=== PATIENT | female | born 1980 | race Two or more races ===

== ENCOUNTER 2025-01-06 13:11 | Inpatient (IN) | payer MEDICAID, SELFPAY ==
[2025-01-06] VITALS (8 sets, daily range): BP systolic 98–134; BP diastolic 56–78; PULSE 75–140; RESP 17–100; TEMP 36.2–39.4; O2SAT 97–100
--- NOTE | 2025-01-06 13:59 | PD.EDADULT ---
ED General RME/HPI General Chief complaint: Chest Pain Stated complaint: LEFT CHEST, ABD PAIN W/ VOMITING; HAND/FACE TINGLE Time Seen by Provider: 01/06/25 13:51 Arrival date/time: 01/06/25 13:11 CC: Left flank pain with radiation to the left groin onset 3 days ago progressive increase in severity of nausea and vomit involved denies any diarrhea noted to be febrile. Patient been taking ibuprofen 800 mg at home without any significant relief. Patient denies chest pain shortness of breath or difficulty breathing however patient is noted during this assessment to be mildly tachypneic. Patient takes metformin as her only medication 500 mg twice a day. Related Data Home Medications ?Medication ?Instructions ?Recorded ?Confirmed vitamins-iron fumarate 27 1 tab PO QDAY 02/15/19 10/24/20 mg iron-folic acid 0.8 mg tablet ( Vitamin) metformin 500 mg tablet 500 mg PO BID 10/24/20 10/24/20 Allergies Allergy/AdvReac Type Severity Reaction Status Date / Time No Known Drug Allergies Allergy Verified 01/06/25 13:16 Review of Systems Review of Systems Narrative Review of Systems: GEN: No fever, no chills, no weight loss EYES: No discharge, no visual changes, no pain HEENT: No ear pain, no congestion, no sore throat PULM: No shortness of breath, no cough, no congestion CV: No chest pain, no dyspnea on exertion, no palpitations GI: No nausea, no vomiting, no diarrhea, no pain, no constipation, +flank pain : No frequency, no urgency, no dysuria MUSC/SKEL: No joint pain, no back pain SKIN: No rash PSYCH: No hallucinations, no depression HEME/LYMPH: No easy bleeding or bruising tendencies NEURO: No weakness, no headache Past Medical History Past Medical History NEUROLOGIC: Negative Neurological Disorders or Seizures CARDIAC: Negative Cardiac Disorders, Congestive Heart Failure or Hypertension RESPIRATORY: Negative Chronic Obstructive Pulmonary Disease (COPD) GASTROINTESTINAL: Negative Gastrointestinal Disorders GENITOURINARY: Negative Genitourinary Disorders or Renal Disease REPRODUCTIVE: Positive Previous Pregnancies (x3); Negative Pelvic Inflammatory Disease MUSCULOSKELETAL: Negative Musculoskeletal Disorders or Arthritis ENDOCRINE: Positive Endocrine Disorders; Negative Diabetes Mellitus Type 1 or Diabetes Mellitus Type 2 HEMATOLOGIC: Negative Blood Disorders or Anemia PSYCHO/SOCIAL: Negative Depression or Anxiety OTHER HISTORY: Positive Hospitalization (childbirth); Negative Autoimmune Disease, Blood Transfusions, Blood Transfusion Reaction, Anesthesia Reactions or Cancer Family History FAMILY HISTORY: Positive Family Cancer (SISTER UTERINE CANCER, MOTHER UTERINE); Negative Family Psychiatric Problems, Family Respiratory Disorders, Family Cardiac Disorders, Family Gastrointestinal Problems, Family Surgery or Family Anesthesia Reaction Surgical History SURGICAL: Positive Section (X1-TWINS); Negative Cardiac Surgery, Endocrine Surgery, Ear Surgery, Abdominal Surgery, Nephrectomy, Joint Replacement, Neurologic Surgery or Mastectomy Social History SMOKING STATUS: Never smoker SECOND HAND EXPOSURE: No ED Exam Narrative Physical exam: [General: Obese, in moderate discomfort but not in any acute distress. Head normocephalic HEENT: Eyes: Pupils are PERRLA EOMs are intact mouth pink dry membranes uvula is midline swallow symmetrical phonation is normal. Nose no rhinorrhea although the subsystems of HEENT are within acceptable limits Neck is supple nontender no JVD no edema Chest equal chest rise nontender to palpation Respiratory: Tachypneic, clear to auscultation no wheezes crackles or rubs CV: Rate rhythm is regular, tachycardic, no murmurs rubs or clicks Abdomen is distended secondary to body habitus soft nontender no masses positive bowel sounds all 4 quadrants GI: Rectum: Good rectal tone, no fissures no hemorrhoids, vault is empty fecal matter from the vault wall is guaiac positive Back: Left CVA tenderness, no right CVA tenderness, no spinous process tenderness from cervical spine thoracic and lumbar spine Skin: Intact no petechiae rash induration ulceration or crepitus Extremities: Moving all extremity against resistance cap refill less than 2 seconds neurosensory intact Neuro: Awake alert oriented x3 Glascow coma 15 no focal deficits] Course Course Course Narrative: Noticed that the patient has a anemia at 9.1 which is a significant drop of 3 g although its over the last [address] shows there is no diverticulitis or diverticulosis, patient does not take chronic ibuprofen or Tylenol. The patient denies having heavy menses. Has never been informed that she is anemic. There is no other reason for her to be anemic other than a GI bleed. Patient's case discussed with Dr. Hawkins who agrees to consult on this patient will admit the patient for GI bleed anemia as well as urolithiasis and flank pain. Patient's case discussed with the resident for Dr. Blackman, who agrees to accept the patient for admission for urolithiasis hydroureter GI bleed and anemia Quality Measures none Orders Category Date Time Status Admit to Inpatient Status Routine Admission 01/06/25 17:12 Active Patient Condition Routine Admission 01/06/25 17:12 Ordered Bedside COVID-19 Antigen Test NOW Care 01/06/25 13:35 Active Bedside Influenza A&B Antigen Test NOW Care 01/06/25 13:35 Completed Automatic Splicing Machine Operator STAT Care 01/06/25 13:56 Active Continuous Pulse Oximetry STAT Care 01/06/25 13:56 Completed EKG (ED ONLY) *Do not use* NOW Care 01/06/25 13:16 Completed In and Out Catheter X1PRN Care 01/06/25 13:56 Active Insert IV NOW Care 01/06/25 13:35 Active NPO STAT Care 01/06/25 13:56 Active NPO after Midnight ONCE Care 01/06/25 16:50 Active Notify provider NEEDED Care 01/06/25 17:12 Active Sequential Compression Device QSHIFT Care 01/06/25 17:11 Active Strict Intake and Output Routine Care 01/06/25 13:56 Ordered Diet Clear Liquid Diet 01/07/25 Breakfast Active Diet NPO after Midnight Diet 01/07/25 00:[address] abdomen pelvis wo con Stat Exams 01/06/25 15:18 Completed EKG (ED Only) Stat Exams 01/06/25 13:16 Ordered B-Type Natriuretic Peptide Stat Lab 01/06/25 13:47 Completed Blood Culture (Lab) Stat Lab 01/06/25 14:07 Received CBC AM DRAW Lab 01/07/25 05:00 Ordered CBC AM DRAW Lab 01/08/25 05:00 Ordered CBC AM DRAW Lab 01/09/25 05:00 Ordered CBC AM DRAW Lab 01/10/25 05:00 Ordered CBC AM DRAW Lab 01/11/25 05:00 Ordered CBC Stat Lab 01/06/25 13:47 Completed Comprehensive Metabolic Panel AM DRAW Lab 01/07/25 05:00 Ordered Comprehensive Metabolic Panel AM DRAW Lab 01/08/25 05:00 Ordered Comprehensive Metabolic Panel AM DRAW Lab 01/09/25 05:00 Ordered Comprehensive Metabolic Panel AM DRAW Lab 01/10/25 05:00 Ordered Comprehensive Metabolic Panel AM DRAW Lab 01/11/25 05:00 Ordered Comprehensive Metabolic Panel Stat Lab 01/06/25 13:47 Completed Glycohemoglobin w (eAG) AM DRAW Lab 01/07/25 05:00 Ordered HCG,Qualitative Serum Stat Lab 01/06/25 13:47 Completed LDH (Lactate Dehydrogenase) Stat Lab 01/06/25 13:47 Completed Lactate (Lactic Acid) Stat Lab 01/06/25 13:47 Completed Lipase Stat Lab 01/06/25 13:47 Completed Magnesium AM DRAW Lab 01/07/25 05:00 Ordered Magnesium AM DRAW Lab 01/08/25 05:00 Ordered Magnesium AM DRAW Lab 01/09/25 05:00 Ordered Magnesium AM DRAW Lab 01/10/25 05:00 Ordered Magnesium AM DRAW Lab 01/11/25 05:00 Ordered Magnesium Stat Lab 01/06/25 13:47 Completed Partial Thromboplastin Time Stat Lab 01/06/25 13:47 Completed Phosphorous AM DRAW Lab 01/07/25 05:00 Ordered Phosphorous AM DRAW Lab 01/08/25 05:00 Ordered Phosphorous AM DRAW Lab 01/09/25 05:00 Ordered Phosphorous AM DRAW Lab 01/10/25 05:00 Ordered Phosphorous AM DRAW Lab 01/11/25 05:00 Ordered Phosphorous Stat Lab 01/06/25 13:47 Completed Procalcitonin Stat Lab 01/06/25 13:47 Completed Prothrombin Time with INR Stat Lab 01/06/25 13:47 Completed Troponin I Stat Lab 01/06/25 13:47 Completed Type and Screen Stat Lab 01/06/25 17:14 Completed Urinalysis Stat Lab 01/06/25 15:07 Completed Urine Culture Stat Lab 01/06/25 15:07 Received Acetaminophen Ivpb [Ofirmev Inj] Med 01/06/25 13:55 Discontinued 1,000 mg in 100 ml IV X1 Acetaminophen Tab [Tylenol ES Tab] Med 01/06/25 13:35 Discontinued 1,000 mg PO X1 ONE Acetaminophen Tab [Tylenol Tab] Med 01/06/25 17:11 Active 650 mg PO Q6H PRN Dextrose 50% Syr [D50w Syringe Abboject] Med 01/06/25 17:11 Active 25 ml IV Q15MIN PRN Dextrose 50% Syr [D50w Syringe Abboject] Med 01/06/25 17:11 Active 50 ml IV Q15MIN PRN Glucagon Inj Med 01/06/25 17:11 Active 1 mg IM Q15MIN PRN HYDROcodone*/APAP 5/325 [[place] 5/325] Med 01/06/25 17:11 Active 1 tab PO Q4HR PRN INSULIN LISPRO (AdmeLOG) [HumaLOG] Med 01/07/25 07:30 Active See Protocol SC AC KCL 10% Liq UDC 15 ML Med 01/06/25 15:18 Discontinued 40 meq GT X1 ONE Morphine Inj Med 01/06/25 17:11 Active 1 mg IVP Q2H PRN Ondansetron Inj [Zofran Inj] Med 01/06/25 17:11 Active 4 mg IVP Q6H PRN Pantoprazole Inj [Protonix Inj] Med 01/07/25 09:00 Discontinued 40 mg IVP QDAY Pantoprazole Inj [Protonix Inj] Med 01/06/25 16:45 Discontinued 40 mg IVP X1 ONE Pantoprazole/Ns 80Mg IV Premix [Protonix/NS 80mg IV Med 01/06/25 16:45 Active Premix] 80 mg in 100 ml IV Q10H Ringers Lactated 1000 ml [Lactated Ringers] 1,000 ml Med 01/06/25 13:59 Discontinued IV 999 mls/hr Ringers Lactated 1000 ml [Lactated Ringers] 1,000 ml Med 01/06/25 14:32 Discontinued IV 999 mls/hr Sodium Chloride 0.9% 1000 ml [Ns] 1,000 ml Med 01/06/25 16:50 Active IV 125 mls/hr Sodium Chloride 0.9% 1000 ml [Ns] 1,000 ml Med 01/06/25 13:35 Discontinued IV 999 mls/hr cefTRIAXone/D5w 1gm IV premix [Rocephin/D5w 1gm IV Med 01/06/25 14:32 Discontinued premix] 1 gm in 50 ml IV X1 Code Status Routine Oth 01/06/25 17:11 Ordered Oxygen Delivery NOW RT 01/06/25 13:56 Active Oxygen Delivery PRN RT 01/06/25 17:11 Active Vital Signs Vital signs: Vital Signs Temperature 103.0 F H 01/06/25 13:24 Pulse Rate 140 H 01/06/25 13:24 Respiratory Rate 24 H 01/06/25 13:24 Blood Pressure 134/78 H 01/06/25 13:24 Pulse Oximetry (%) 98 01/06/25 13:24 Oxygen Delivery Method Room Air 01/06/25 13:24 Discharge Plan Plan Patient Disposition: Admit Acute Care w/in Hospital Patient condition on transfer: Stable Problem List Clinical Impression: Anemia, GI bleed, Hydronephrosis, Urolithiasis 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 No thrombocytopenia. Note review of the medical record show that hemoglobins in the past have been highly variable. Coags within acceptable limits CMP shows sodium 134 potassium 3.1 CO2 of 18.9 glucose of 170 Lactic of 3.0 Phos of 1.3 Mag 1.5 No transaminitis or T. bili elevation Troponin is negative BNP is 111 Procalcitonin 1.42. Medication Administration(s) Medication Administration History Acetaminophen (Acetaminophen 325 Mg Tablet) 650 mg PO Q6H PRN PRN Reason: pain and Fever >100.4 Stop: 02/05/25 17:10 Last Admin: 01/06/25 21:57 Dose: 650 mg Documented By: Comments: Per Pt request Hydrocodone Bitart/Acetaminophen (Hydrocodone/Apap 5/325 Tablet) 1 tab PO Q4HR PRN PRN Reason: PAIN SCALE 4-6 (Moderate Stop: 01/11/25 17:10 Dextrose (Dextrose 50%-Water Inj 50 Ml Syringe) 25 ml IV Q15MIN PRN PRN Reason: BG 50-70 responsive npo pt Stop: 02/05/25 17:10 Dextrose (Dextrose 50%-Water Inj 50 Ml Syringe) 50 ml IV Q15MIN PRN PRN Reason: BG <50 OR BG <70 & pt unresponsive Stop: 02/05/25 17:10 Glucagon (Glucagon Inj 1 Mg Vial) 1 mg IM Q15MIN PRN PRN Reason: BG <70, and no IV access Pantoprazole Sodium (Protonix/Ns 80mg Iv Premix) 80 mg in 100 mls @ 10 mls/hr IV Q10H [facility] Stop: 01/09/25 14:44 Last Admin: 01/06/25 17:00 Dose: 10 mls/hr Documented By: GM Sodium Chloride (Ns) 1,000 mls @ 125 mls/hr IV .Q8H [facility] Stop: 02/05/25 16:49 Last Admin: 01/06/25 17:01 Dose: 125 mls/hr Documented By: GM Ceftriaxone Sodium/Dextrose (Rocephin/D5w 1gm Iv Premix) 1 gm in 50 mls @ 100 mls/hr IV QDAY@1400 [facility] Stop: 01/13/25 17:18 Last Admin: 01/06/25 17:23 Dose: Not Given Documented By: EF Non-Admin Reason: Wrong Time Insulin Human Lispro (Insulin Lispro (Admelog) 1 Unit/0.01 Ml Unit) 0 unit SC AC [facility]; Protocol Stop: 02/06/25 07:29 Morphine Sulfate (Morphine Sulf Inj 10 Mg/Ml Vial) 1 mg IVP Q2H PRN PRN Reason: PAIN SCALE 7-10 (Severe Stop: 01/11/25 17:10 Ondansetron HCl (Ondansetron Inj 2 Mg/Ml Inj 2 Ml) 4 mg IVP Q6H PRN; Protocol PRN Reason: NAUSEA OR VOMITING Stop: 02/05/25 17:10 Discontinued Medications Acetaminophen (Acetaminophen 500 Mg Tablet) 1,000 mg PO X1 ONE Stop: 01/06/25 13:36 Last Admin: 01/06/25 14:04 Dose: Not Given Documented By: EF Non-Admin Reason: Cancelled by Provider Sodium Chloride (Ns) 1,000 mls @ 999 mls/hr IV .Q1H1M ONE Stop: 01/06/25 14:35 Last Infusion: 01/06/25 15:02 Dose: Infused Documented By: Admin: 01/06/25 14:01 Dose: 999 mls/hr Documented By: EF Acetaminophen (Ofirmev Inj) 1,000 mg in 100 mls @ 250 mls/hr IV X1 ONE Stop: 01/06/25 14:18 Last Infusion: 01/06/25 14:25 Dose: Infused Documented By: Admin: 01/06/25 14:01 Dose: 250 mls/hr Documented By: EF Lactated Ringer's (Lactated Ringers) 1,000 mls @ 999 mls/hr IV .Q1H1M ONE Stop: 01/06/25 14:59 Last Infusion: 01/06/25 15:57 Dose: Infused Documented By: Admin: 01/06/25 14:56 Dose: 999 mls/hr Documented By: EF Ceftriaxone Sodium/Dextrose (Rocephin/D5w 1gm Iv Premix) 1 gm in 50 mls @ 100 mls/hr IV X1 ONE Stop: 01/06/25 15:01 Last Infusion: 01/06/25 15:19 Dose: Infused Documented By: Admin: 01/06/25 14:49 Dose: 100 mls/hr Documented By: EF Lactated Ringer's (Lactated Ringers) 1,000 mls @ 999 mls/hr IV .Q1H1M ONE Stop: 01/06/25 15:32 Last Infusion: 01/06/25 16:00 Dose: Infused Documented By: Admin: 01/06/25 14:59 Dose: 999 mls/hr Documented By: EF Magnesium Sulfate (Magnesium Sulfate Ivpb) 4 gm in 50 mls @ 12.5 mls/hr IV X1 ONE Stop: 01/06/25 21:17 Last Admin: 01/06/25 17:30 Dose: 12.5 mls/hr Documented By: EF Pantoprazole Sodium (Pantoprazole Inj 40 Mg Vial) 40 mg IVP X1 ONE Stop: 01/06/25 16:46 Last Admin: 01/06/25 16:56 Dose: 40 mg Documented By: GM Pantoprazole Sodium (Pantoprazole Inj 40 Mg Vial) 40 mg IVP QDAY NYDIA Stop: 02/06/25 08:59 Potassium Chloride (Potassium Chloride 10% 20 Meq/15 Ml Udc) 40 meq GT X1 ONE Stop: 01/06/25 15:19 Last Admin: 01/06/25 15:39 Dose: 40 meq Documented By: EF Potassium Phos/Sodium Phos (Naph,[facility] 1 Packet (1.5 Gm)) 1 packet PO X1 ONE Stop: 01/06/25 17:19 Last Admin: 01/06/25 18:33 Dose: 1 packet Documented By: EF
[2025-01-06] MEDS: ACETAMINOPHEN IVPB 1,000 MG/100 ML VIAL 250 MG IV (14:01)
[2025-01-06] MEDS: SODIUM CHLORIDE 0.9% 1000 ML 1,000 ML 999 ML IV (14:01)
[2025-01-06 14:14] LABS: Basophils % (Auto) 0 % (0-2.5); Eosinophils % (Auto) 0 % (0-10); Hematocrit 29.4 % (36.0-46.0); Hemoglobin 9.1 g/dL (12.0-16.0); Immature Granulocytes % (Auto) 1 % (0-0); Immature Granulocytes Auto 0.04 Thou/mm3 (0.00-0.00); Lymphocytes # (Auto) 0.4 Thou/mm3 (1.0-4.8); Lymphocytes % (Auto) 7 % (10-50); Mean Corpuscular Hemoglobin 20.5 pg (25.0-35.0); Mean Corpuscular Volume 66 fL (80-100); Monocytes # (Auto) 0.1 Thou/mm3 (0.0-0.8); Monocytes % (Auto) 1 % (0-12); Neutrophils # (Auto) 5.6 Thou/mm3 (1.8-7.7); Neutrophils % (Auto) 92 % (37-80); Nucleated Red Blood Cell % 0 /100 WBC (0); Platelet Count 279 Thou/mm3 (140-440); RDW Standard Deviation 42.2 fL (36.4-46.3); Red Blood Count 4.43 Miln/mm3 (4.00-5.20); White Blood Count 6.1 Thou/mm3 (3.6-11.0)
[2025-01-06 14:31] LABS: HCG,Qualitative Serum Negative
[2025-01-06 14:33] LABS: INR 1.1 (0.9-1.3); Partial Thromboplastin Time 24.9 Seconds (22.0-36.0); Prothrombin Time 11.7 Seconds (9.0-12.2)
[2025-01-06 14:42] LABS: Alanine Aminotransferase 22 U/L (10-49); Albumin, Serum 4.4 gm/dL (3.5-5.0); Albumin/Globulin Ratio 1.5 (1.2-2.2); Alkaline Phosphatase 109 U/L (46-116); Anion Gap 14 (7-16); Aspartate Amino Transferase 30 U/L (0-34); BUN/Creatinine Ratio 10 Ratio (12-20); Bilirubin,Total 0.5 mg/dL (0.3-1.2); Blood Urea Nitrogen 11 mg/dL (9-23); Calcium 9.1 mg/dL (8.3-10.6); Calcium (Corrected) 9.1 mg/dL (8.5-10.1); Carbon Dioxide 18.9 mMol/L (20.0-31.0); Chloride 101 mMol/L (98-107); Creatinine (Component) 1.1 mg/dL (0.6-1.3); Estimated Creatinine Clearance 73.8 mL/min (>60); Globulin 2.9 gm/dL (2.3-3.5); Glucose 170 mg/dL (74-106); Lipase 29 U/L (12-53); Magnesium 1.5 mg/dL (1.6-2.6); Osmolality,Calculated 271 (275-295); Phosphorous 1.3 mg/dL (2.4-5.1); Potassium 3.1 mMol/L (3.4-5.1); Procalcitonin 1.42 ng/ml (0.0-0.49); Sodium 134 mMol/L (136-145); Total Protein 7.3 gm/dL (5.7-8.2); Troponin I < 0.020 ng/mL (0.0-0.045); eGFR > 60 See Note
[2025-01-06 14:44] LABS: B-Type Natriuretic Peptide 111 pg/mL (0-100)
[2025-01-06] MEDS: cefTRIAXone/D5w 1gm IV premix 1 GM/50 ML BAG IV (14:49)
[2025-01-06] MEDS: RINGERS LACTATED 1000 ML 1,000 ML 999 ML IV ×2 (14:56→14:59)
[2025-01-06 15:02] LABS: LDH (Lactate Dehydrogenase) 215 U/L (120-246)
[2025-01-06 15:15] LABS: Collection Type, Urine Clean Catch
--- NOTE | 2025-01-06 15:18 | XR_ITS ---
Examination: CT abdomen and pelvis without contrast. Coronal 3-D reconstructions. Sagittal 2-D reconstructions. Date and time of exam:January 06, 2025, 1530 hours INDICATIONS: Left lower quadrant abdominal pain nausea and fever beginning 3 days ago CTDI: vol (mGy): 15.5 DLP: (mGycm): 852 Technique: Axial images of the abdomen have been obtained, 3 mm slice thickness Intravenous contrast material has not been administered. Low dose protocols were performed. One or more of the following dose reduction techniques were used; automated exposure control, adjustment of the mA and/or KV according to patient size, use of iterative reconstruction technique. Findings: Cholelithiasis No pancreatic or adrenal mass Spleen is not enlarged Mild left hydronephrosis secondary to 5 mm distal left ureteral calculus, coronal image 86 No bowel obstruction Normal appendix No diverticulitis Anteverted uterus with enlarged irregular fundus Urinary bladder wall thickening up to 4 mm Mild disc narrowing L5-S1 IMPRESSION: Cholelithiasis Mild left hydronephrosis secondary to 5 mm distal left ureteral calculus Irregular mildly enlarged fundus of the uterus, consider pelvic sonography follow-up
[2025-01-06 15:32] LABS: Bacteria,Urine 3+; Bilirubin,Urine Negative (Negative); Blood,Urine 2+ (Negative); Clarity,Urine Hazy (Clear/Hazy); Color,Urine Lt-Yellow (Lt Yel-Yel); Glucose, Urine Negative (Negative); Ketones,Urine Trace (Negative); Leukocyte Esterase,Urine Positive (Negative); Nitrite,Urine Positive (Negative); Protein,Urine 1+ (Neg - Trace); RBC,Urine 23 /hpf (0-3); Specific Gravity,Urine 1.024 (1.001-1.035); Squamous Epithelial Cell,Urine 1 /hpf (0-5); Urobilinogen,Urine Negative mg/dL (0.0-1.0); WBC,Urine 19 /hpf (0-5)
[2025-01-06] MEDS: POTASSIUM CHLORIDE 10% 20 MEQ/15 ML UDC 40 MEQ GT (15:39)
[2025-01-06] MEDS: PANTOPRAZOLE INJ 40 MG VIAL IVP (16:56)
[2025-01-06] MEDS: PANTOPRAZOLE/NS 80MG IV PREMIX 80 MG/100 ML BAG 10 MG IV (17:00)
[2025-01-06] MEDS: SODIUM CHLORIDE 0.9% 1000 ML 1,000 ML 125 ML IV (17:01)
[2025-01-06 17:08] LABS: Reflex Lactate? Y
--- NOTE | 2025-01-06 17:20 | PD.RESHP ---
Documentation for date of: 01/06/25 HPI History of Present Illness Chief complaint: L flank pain History of present illness: 44-year-old female with past medical history of prediabetes was admitted to the hospital on 01/06/2025 to come to the ED with complaints of left flank pain which started around 3 days ago. Patient stated that around 3 days ago she started having excruciating left flank pain which progressively got worse and today she experienced chills and feelings of subjective fever. Patient stated that today she became nauseated due to the pain, but did not have any vomiting. Patient's hemoglobin on initial labs was low at 9.1 therefore FOBT was done which came back positive. Patient stated that she has not noticed any black tarry stools or any blood per rectum. She stated that she has never had these issues in the past and has never had any kidney stones or blood in the urine or stool. Patient states she is currently on her period, but that she does not have heavy bleeding with her menstruation. She stated that for the past three days she has been taking 2 pills of ibuprofen a day, but other than that she does not use it frequently. No other complaints at this time. ED course: Initially came in febrile, tachycardic, and tachypneic. Initial labs were relevant for low hemoglobin 9.1, hypokalemia (3.1), hypophosphatemia (1.3), hypomagnesemia (1.5), lactic acidosis (3 and downtrended to 1.3), elevated procalcitonin at 1.42, and UA was positive for bacteria and RBC. Initial imaging included abdomen/pelvis CT which showed cholelithiasis, mild left hydronephrosis secondary to a 5 mm distal left ureteral calculus and mildly enlarged fundus of the uterus. PMH: As above Social Hx: Denies any alcohol, drugs, or smoking Surgical Hx: Medications: Metformin Review of Systems Review of Systems Narrative Review of Systems: Constitutional: Denies sweats, Denies weight loss/gain, Admits fever, Admits chills. HEENT: Denies hearing loss, Denies ear pain, Denies postnasal drip, Denies double vision, Denies blurry vision. Respiratory: Denies shortness of breath, Denies cough, Denies wheezing. Cardiovascular: Denies chest pain, Denies palpitations, Denies sudden loss of consciousness. GI: Denies blood in stool, Denies constipation, Admits abdominal pain, Denies difficulty swallowing, Admits nausea denies vomit. : Denies urinary incontinence, Denies pain while urinating, Denies increased urinary frequency. MSK: Denies joint pain, Denies joint swelling, Denies numbness. Skin: Denies rash, Denies itching, Denies easy bruising. Neuro: Denies headaches, Denies dizziness, Denies seizures. Past Medical History Past Medical History NEUROLOGIC: Negative Neurological Disorders or Seizures CARDIAC: Negative Cardiac Disorders, Congestive Heart Failure or Hypertension RESPIRATORY: Negative Chronic Obstructive Pulmonary Disease (COPD) GASTROINTESTINAL: Negative Gastrointestinal Disorders GENITOURINARY: Negative Genitourinary Disorders or Renal Disease REPRODUCTIVE: Positive Previous Pregnancies (x3); Negative Pelvic Inflammatory Disease MUSCULOSKELETAL: Negative Musculoskeletal Disorders or Arthritis ENDOCRINE: Positive Endocrine Disorders; Negative Diabetes Mellitus Type 1 or Diabetes Mellitus Type 2 HEMATOLOGIC: Negative Blood Disorders or Anemia PSYCHO/SOCIAL: Negative Depression or Anxiety OTHER HISTORY: Positive Hospitalization (childbirth); Negative Autoimmune Disease, Blood Transfusions, Blood Transfusion Reaction, Anesthesia Reactions or Cancer Family History FAMILY HISTORY: Positive Family Cancer (SISTER UTERINE CANCER, MOTHER UTERINE); Negative Family Psychiatric Problems, Family Respiratory Disorders, Family Cardiac Disorders, Family Gastrointestinal Problems, Family Surgery or Family Anesthesia Reaction Surgical History SURGICAL: Positive Section (X1-TWINS); Negative Cardiac Surgery, Endocrine Surgery, Ear Surgery, Abdominal Surgery, Nephrectomy, Joint Replacement, Neurologic Surgery or Mastectomy Social History SMOKING STATUS: Never smoker SECOND HAND EXPOSURE: No Exam Vital Signs Temp Pulse Resp BP Pulse Ox O2 Del Method 99.0 F 93 25 H 106/56 L 97 Room Air 01/06/25 16:35 01/06/25 16:35 01/06/25 16:35 01/06/25 16:35 01/06/25 16:35 01/06/25 16:35 Narrative Exam General: A/O x3, no acute distress, pale Eyes: PERRL, EOMI. Anicteric, vision grossly intact. Ears: No ear pain, no ear discharge, Hearing grossly intact. Nose: No nasal discharge. Mouth/Throat: Moist mucous membranes, no redness, no lesions. Neck: Neck supple, non-tender, no cervical lymphadenopathy. Lungs: Clear FELICIA to auscultation and percussion, No accessory muscle use. Cardio: Normal S1/S2, regular rhythm, no murmurs, no JVD or carotid bruits. Abdomen: Soft, mildly tender in L side, no palpable masses, peristalsis present, no guarding or rebound. Extremities: Symmetrical, no significant deformities, no peripheral edema , non-tender, peripheral pulses presents. Skin: No rashes, no lesions, warm to touch. Neuro: No focal neurological deficits. motor and sensory intact Psych: Cooperative, appropriate mood and effect. Results: Labs 01/09/25 05:26 01/09/25 05: Labs: Short CBC 01/06/25 Range/Units 13:47 WBC 6.1 (3.6-11.0) Thou/mm3 Hgb 9.1 L (12.0-16.0) g/dL Hct 29.4 L (36.0-46.0) % Plt Count 279 (140-440) Thou/mm3 BMP 01/06/25 13:47 Sodium 134 L Potassium 3.1 L Chloride 101 Carbon Dioxide 18.9 L BUN 11 Creatinine 1.1 Glucose 170 H Calcium 9.1 Cardiac Enzymes 01/06/25 Range/Units 13:47 Troponin I < 0.020 (0.0-0.045) ng/mL Liver Function 01/06/25 Range/Units 13:47 Total Bilirubin 0.5 (0.3-1.2) mg/dL AST 30 (0-34) U/L ALT 22 (10-49) U/L Alkaline Phosphatase 109 (46-116) U/L Albumin 4.4 (3.5-5.0) gm/dL Urine 01/06/25 Range/Units 15:07 Urine Color Lt-Yellow (Lt Yel-Yel) Urine Clarity Hazy (Clear/Hazy) Urine pH 6.0 (5.0-7.0) Ur Specific [place] 1.024 (1.001-1.035) Urine Protein 1+ A (Neg - Trace) Urine Glucose (UA) Negative (Negative) Quality Measures Quality Measures VTE prophylaxis Medications Home Medications and Allergies Home Medications ?Medication ?Instructions ?Recorded ?Confirmed ?Type metformin 750 mg tablet,extended 750 mg PO HS 01/07/25 01/07/25 History release 24 hr Allergies Allergy/AdvReac Type Severity Reaction Status Date / Time No Known Drug Allergies Allergy Verified 01/06/25 13:16 Visit Medications Acetaminophen (Acetaminophen 325 Mg Tablet) 650 mg PO Q6H PRN PRN Reason: pain and Fever >100.4 Stop: 02/05/25 17:10 Hydrocodone Bitart/Acetaminophen (Hydrocodone/Apap 5/325 Tablet) 1 tab PO Q4HR PRN PRN Reason: PAIN SCALE 4-6 (Moderate Stop: 01/11/25 17:10 Dextrose (Dextrose 50%-Water Inj 50 Ml Syringe) 25 ml IV Q15MIN PRN PRN Reason: BG 50-70 responsive npo pt Stop: 02/05/25 17:10 Dextrose (Dextrose 50%-Water Inj 50 Ml Syringe) 50 ml IV Q15MIN PRN PRN Reason: BG <50 OR BG <70 & pt unresponsive Stop: 02/05/25 17:10 Glucagon (Glucagon Inj 1 Mg Vial) 1 mg IM Q15MIN PRN PRN Reason: BG <70, and no IV access Pantoprazole Sodium (Protonix/Ns 80mg Iv Premix) 80 mg in 100 mls @ 10 mls/hr IV Q10H [facility] Stop: 01/09/25 14:44 Last Admin: 01/06/25 17:00 Dose: 10 mls/hr Sodium Chloride (Ns) 1,000 mls @ 125 mls/hr IV .Q8H [facility] Stop: 02/05/25 16:49 Last Admin: 01/06/25 17:01 Dose: 125 mls/hr Magnesium Sulfate (Magnesium Sulfate Ivpb) 4 gm in 50 mls @ 12.5 mls/hr IV X1 ONE Stop: 01/06/25 21:17 Ceftriaxone Sodium 1 gm/ (Sodium Chloride) 50 mls @ 100 mls/hr IV QDAY [facility] Stop: 01/13/25 17:18 Insulin Human Lispro (Insulin Lispro (Admelog) 1 Unit/0.01 Ml Unit) 0 unit SC AC [facility]; Protocol Stop: 02/06/25 07:29 Morphine Sulfate (Morphine Sulf Inj 10 Mg/Ml Vial) 1 mg IVP Q2H PRN PRN Reason: PAIN SCALE 7-10 (Severe Stop: 01/11/25 17:10 Ondansetron HCl (Ondansetron Inj 2 Mg/Ml Inj 2 Ml) 4 mg IVP Q6H PRN; Protocol PRN Reason: NAUSEA OR VOMITING Stop: 02/05/25 17:10 Potassium Phos/Sodium Phos (Naph,[facility] Mbdb 1 Packet (1.5 Gm)) 1 packet PO X1 ONE Stop: 01/06/25 17:19 Discontinued Medications Acetaminophen (Acetaminophen 500 Mg Tablet) 1,000 mg PO X1 ONE Stop: 01/06/25 13:36 Last Admin: 01/06/25 14:04 Dose: Not Given Sodium Chloride (Ns) 1,000 mls @ 999 mls/hr IV .Q1H1M ONE Stop: 01/06/25 14:35 Last Infusion: 01/06/25 15:02 Dose: Infused Acetaminophen (Ofirmev Inj) 1,000 mg in 100 mls @ 250 mls/hr IV X1 ONE Stop: 01/06/25 14:18 Last Infusion: 01/06/25 14:25 Dose: Infused Lactated Ringer's (Lactated Ringers) 1,000 mls @ 999 mls/hr IV .Q1H1M ONE Stop: 01/06/25 14:59 Last Infusion: 01/06/25 15:57 Dose: Infused Ceftriaxone Sodium/Dextrose (Rocephin/D5w 1gm Iv Premix) 1 gm in 50 mls @ 100 mls/hr IV X1 ONE Stop: 01/06/25 15:01 Last Infusion: 01/06/25 15:19 Dose: Infused Lactated Ringer's (Lactated Ringers) 1,000 mls @ 999 mls/hr IV .Q1H1M ONE Stop: 01/06/25 15:32 Last Infusion: 01/06/25 16:00 Dose: Infused Pantoprazole Sodium (Pantoprazole Inj 40 Mg Vial) 40 mg IVP X1 ONE Stop: 01/06/25 16:46 Last Admin: 01/06/25 16:56 Dose: 40 mg Pantoprazole Sodium (Pantoprazole Inj 40 Mg Vial) 40 mg IVP QDAY NYDIA Stop: 02/06/25 08:59 Potassium Chloride (Potassium Chloride 10% 20 Meq/15 Ml Udc) 40 meq GT X1 ONE Stop: 01/06/25 15:19 Last Admin: 01/06/25 15:39 Dose: 40 meq Assessment & Plan Plan 44-year-old female was admitted to the hospital on 01/06/2025 due to possible GI bleed and urolithiasis. #Left urolithiasis #Mild left hydronephrosis #Complicated UTI #Lactic acidosis #High anion gap metabolic acidosis Patient came in with left flank pain on abdomen/pelvis CT she did have some mild left hydronephrosis secondary to a 5 mm left distal ureteral stone Patient's UA was positive for bacteria and blood Patient did meets SIRS criteria 3 out of 4 (no WBC elevation) Patient's lactic acid was initially 3 and then down trended to 1.3 Anion gap 14 and bicarb 18.9 likely in the setting of lactic acidosis Aggressive IV hydration with 3 L boluses in the ED Plan: IV Rocephin daily Blood cultures and urine cultures ordered Pain management with morphine 1 mg every 2 hours for severe pain and [place] 5 for moderate pain Will continue to monitor #Microcytic normochromic anemia #Possible GI bleed Patient came in with hemoglobin 9.1 her baseline is around 12 Patient's FOBT was positive, but patient denies any blood in the stool or black starry stools in the past. Patient does endorse using ibuprofen for the last 3 days, but does not routinely use it. Patient is currently on her menstruation, but she states that she is not have a heavy period Plan: Protonix Clear liquid diet N.p.o. after midnight GI consulted, pressure, durations Will transfer hemoglobin less than 7 Will continue to monitor #Electrolyte imbalance #Hypokalemia #Hypomagnesemia #Hypophosphatemia Patient came with the potassium of 3.1, magnesium 1.5, and Phos was 1.3 Plan: Got 40 mEq of potassium, 1 pack of Neutra-Phos, and 4 g of magnesium Will replete as necessary #Prediabetes Patient states she takes metformin for prediabetes Plan: A1c in Am labs ISS Hypoglycemic protocol Disposition: Patient admitted to telemetry. Diet: CLD and NPO midnight GI prophylaxis: protonix DVT prophylaxis: SCD Code: full Case disclosed with Attending Dr. Yehuda Fontenot PGY1 Disclaimer: Even though this this note was dictated by speech recognition and even though it was carefully revised there may still be minor errors in bank guard due to voice recognition software. Attending Provider Attestation/Addendum I attest that I was physically present for the evaluation, physical examination, lab and imaging review of the patient with the residents. I discussed the case with the residents and agree with the findings and plans of care as documented above. After examination of the patient and review of the clinical data I feel that this patient needs admission to the hospital for further treatment/evaluation. Canelo Blackman MD
[2025-01-06 17:29] LABS: Lactate (Lactic Acid) 1.3 mMol/L (0.4-2.0)
[2025-01-06] MEDS: Magnesium Sulfate 4 GM Ivpb 4 GM/50 ML BAG IV (17:30)
[2025-01-06] MEDS: NAPH,KPH MBDB 1 PACKET (1.5 GM) PO (18:33)
[2025-01-06] MEDS: ACETAMINOPHEN 325 MG TABLET 650 MG PO (21:57)
--- NOTE | 2025-01-06 23:32 | ESCONSULT_ITS ---
HPI Data of Consult Requesting Physician: Mark Fontenot MD Primary Care Provider: Remy Linares MD Consult Narrative Reason for consult: Anemia FOBT positive History of present illness: 44 years of female presented to the hospital with 3-day history of abdominal pain CT scan of the abdomen pelvis showed 5 mm left ureteric stone with mild to moderate hydronephrosis She was found to have a hemoglobin 9.1 which dropped down to 6.7 She was FOBT positive She was also having a complicated UTI lactic acidosis I been consulted for low hemoglobin hematocrit and FOBT positivity cc:: cc: Mark Fontenot MD Review of Systems Review of Systems Systems Reviewed: All systems reviewed, normal except as documented Past Medical History Surgical History OTHER SURGICAL HX: As in the history of present illness Meds Home Medications and Allergies Home Medications ?Medication ?Instructions ?Recorded ?Confirmed ?Type metformin 750 mg tablet,extended 750 mg PO HS 01/07/25 01/07/25 History release 24 hr Allergies Allergy/AdvReac Type Severity Reaction Status Date / Time No Known Drug Allergies Allergy Verified 01/06/25 13:16 Exam Vital Signs Temp Pulse Resp BP Pulse Ox O2 Del Method 97.1 F 90 18 110/73 100 Room Air 01/06/25 20:00 01/06/25 22:49 01/06/25 22:49 01/06/25 20:00 01/06/25 20:00 01/06/25 20:00 Constitutional Comments: Alert oriented Routine Abdominal Exam Comments: Left upper quadrant tenderness Results Labs 01/09/25 05:26 01/09/25 05:26 Labs: Short CBC 01/06/25 Range/Units 13:47 WBC 6.1 (3.6-11.0) Thou/mm3 Hgb 9.1 L (12.0-16.0) g/dL Hct 29.4 L (36.0-46.0) % Plt Count 279 (140-440) Thou/mm3 BMP 01/06/25 13:47 Sodium 134 L Potassium 3.1 L Chloride 101 Carbon Dioxide 18.9 L BUN 11 Creatinine 1.1 Glucose 170 H Calcium 9.1 Cardiac Enzymes 01/06/25 Range/Units 13:47 Troponin I < 0.020 (0.0-0.045) ng/mL Liver Function 01/06/25 Range/Units 13:47 Total Bilirubin 0.5 (0.3-1.2) mg/dL AST 30 (0-34) U/L ALT 22 (10-49) U/L Alkaline Phosphatase 109 (46-116) U/L Albumin 4.4 (3.5-5.0) gm/dL Urine // Range/Units 15:07 Urine Color Lt-Yellow (Lt Yel-Yel) Urine Clarity Hazy (Clear/Hazy) Urine pH 6.0 (5.0-7.0) Ur Specific [place] 1.024 (1.001-1.035) Urine Protein 1+ A (Neg - Trace) Urine Glucose (UA) Negative (Negative) Assessment and Plan Additional Assessment & Plan Additional Plan: # Anemia blood loss # FOBT positive Plan Consent obtained for fiberoptic esophagogastroduodenoscopy with possible biopsy possible therapeutic intervention under intravenous moderate sedation If the EGD is negative we will consider doing a fiberoptic colonoscopy prior to discharge Other medical problems include Left hydronephrosis Left ureteric stone UTI Lactic and metabolic acidosis mostly due to dehydration Thank you very much for the opportunity to participate in the care of this patient
[2025-01-07] VITALS (18 sets, daily range): BP systolic 95–152; BP diastolic 54–85; PULSE 67–95; RESP 14–98; TEMP 36–37.2; O2SAT 95–100
[2025-01-07] MEDS: SODIUM CHLORIDE 0.9% 1000 ML 1,000 ML 125 ML IV ×3 (01:06→16:10)
[2025-01-07] MEDS: PANTOPRAZOLE/NS 80MG IV PREMIX 80 MG/100 ML BAG 10 MG IV ×2 (01:23→12:44)
--- NOTE | 2025-01-07 01:56 | PC.NURSE ---
Dr. Mckeon was made aware of the initial results of blood culture. to review patient's chart.
[2025-01-07 05:56] LABS: Basophils % (Auto) 0 % (0-2.5); Eosinophils % (Auto) 1 % (0-10); Hematocrit 24.2 % (36.0-46.0); Immature Granulocytes % (Auto) 1 % (0-0); Immature Granulocytes Auto 0.04 Thou/mm3 (0.00-0.00); Lymphocytes # (Auto) 1.7 Thou/mm3 (1.0-4.8); Lymphocytes % (Auto) 20 % (10-50); Mean Corpuscular HGB Conc 30.6 g/dl (31.0-37.0); Mean Corpuscular Volume 69 fL (80-100); Monocytes # (Auto) 0.9 Thou/mm3 (0.0-0.8); Monocytes % (Auto) 11 % (0-12); Neutrophils # (Auto) 5.6 Thou/mm3 (1.8-7.7); Neutrophils % (Auto) 68 % (37-80); Nucleated Red Blood Cell % 0 /100 WBC (0); Platelet Count 200 Thou/mm3 (140-440); RDW Standard Deviation 44.2 fL (36.4-46.3); Red Blood Count 3.53 Miln/mm3 (4.00-5.20); White Blood Count 8.2 Thou/mm3 (3.6-11.0)
[2025-01-07 06:10] LABS: Hemoglobin 7.4 g/dL (12.0-16.0)
[2025-01-07 06:20] LABS: Glucose Estimated Average 140 mg/dL (80-131); Hemoglobin A1C 6.5 % Hgb (4.8-6.0)
[2025-01-07 06:24] LABS: Path Review Blood Smear Sent to Pathologist
[2025-01-07 06:31] LABS: Alanine Aminotransferase 25 U/L (10-49); Albumin, Serum 3.6 gm/dL (3.5-5.0); Albumin/Globulin Ratio 1.6 (1.2-2.2); Alkaline Phosphatase 83 U/L (46-116); Anion Gap 10 (7-16); Aspartate Amino Transferase 24 U/L (0-34); BUN/Creatinine Ratio 9 Ratio (12-20); Bilirubin,Total 0.4 mg/dL (0.3-1.2); Blood Urea Nitrogen 7 mg/dL (9-23); Calcium 8.2 mg/dL (8.3-10.6); Calcium (Corrected) 8.5 mg/dL (8.5-10.1); Carbon Dioxide 22.4 mMol/L (20.0-31.0); Chloride 107 mMol/L (98-107); Creatinine (Component) 0.8 mg/dL (0.6-1.3); Estimated Creatinine Clearance 108.8 mL/min (>60); Globulin 2.3 gm/dL (2.3-3.5); Glucose 121 mg/dL (74-106); Magnesium 2.6 mg/dL (1.6-2.6); Osmolality,Calculated 276 (275-295); Phosphorous 3.2 mg/dL (2.4-5.1); Potassium 3.5 mMol/L (3.4-5.1); Sodium 139 mMol/L (136-145); Total Protein 5.9 gm/dL (5.7-8.2); eGFR > 60 See Note
[2025-01-07] MEDS: cefTRIAXone 2 GM in SODIUM CHLORIDE 0.9% (Popper) 50 ML IV (08:51)
[2025-01-07] MEDS: ACETAMINOPHEN 325 MG TABLET 650 MG PO ×2 (09:00→16:25)
[2025-01-07 09:51] LABS: HCG Qualitative,Urine Negative
--- NOTE | 2025-01-07 09:58 | PC.SS ---
Patient Kadie Aiken is a 44 Year old female admitted for GI Bleed and Kidney Stones. SS met with patient at bedside to discuss discharge plan and verify demographic information. Patient reports she lives at home with family. prior to admission patient did not utilize any source of DME to assist with ambulation. Patient is able to complete all ADL's independently. Surrogate decision maker is her Sister, Sheba Aiken [phone]. Choice of pharmacy is [facility]. PCP is Remy Linares. At time of discharge patient will return back home. Family will provide transportation. Discharge plan: Home Next of kin, Sister, Sheba aiken PCP: Remy Linares
--- NOTE | 2025-01-07 11:40 | PC.SS ---
SS follow up note; EGD pending. Patient will discharge home when medically cleared.
--- NOTE | 2025-01-07 13:17 | ESPR_ITS ---
<Statement entered by Bijal Rivera MD - 01/08/25 08:38> 44-year-old female who presented with generalized weakness negative for bacteremia secondary to complicated UTI on IV antibiotic therapy. In addition, also noted to have lactic acidosis with high anion gap which completely improved with aggressive IV fluid resuscitation. Of note, patient did undergo CT abdomen and pelvis which noted 5 mm distal ureteral stone with mild left hydronephrosis and plan to monitor closely as hydronephrosis significant to consider percutaneous at this point in patient urology referral. With the patient and she is in agreement to continue IV antibiotic and understands that she will need outpatient urology referral. As of now, continue Rocephin 2 g daily pending sensitivity and once we get sensitivity we will discharge the patient on oral antibiotic therapy in the next 24-48 hours.I reviewed above note and agree with findings and plans. I have also personally examined the patient with medicine team and went over assessment and plan with medical team including video editing intern and resident physician. <Statement entered by Dori Bridges MD - 01/07/25 14:35> Patient seen and examined at bedside. No acute overnight events reported. Patient's hemoglobin today was 7.4, however most likely low in the setting of dehydration. Patient is scheduled for EGD today with GI. Patient will continue to be on Rocephin 2 g daily for GNR bacteremia. Pending final speciation from antibiogram for both urine culture and blood culture. Lactic acid is also downtrending. Continue with IV Protonix transfuse if hemoglobin is less than 7. I discussed with and supervised the video editing intern physician who took care of this patient. I personally saw and examined the patient and discussed the assessment and plan with the entire medicine team, including my attending Dr. Rivera, I agree with most of the assessment and plan as documented below Dori Bridges M.D. PGY-2 Disclaimer: Despite multiple revisions, due to the dictation software being used, the document bellow may not be free of grammatical errors including phonetic/typographic errors. However, this does not deter from our commitment to providing health care in the patient's best interest in mind. Documentation for date of: 01/07/25 Subjective Subjective Interval history: Patient was seen and examined at bedside this morning. No acute overnight events. Patient remained afebrile overnight blood pressure has been stable. She did not have any new complaints today other than some headache this morning. Patient's hemoglobin did drop to 7.4 from 9.1 yesterday, but she did receive 3 L of IV fluids which could also influence patient's hemoglobin drop. She did not spike any WBC either and otherwise all other labs remain fairly unremarkable. Blood cultures did grow GNR 2/2. No other complaints at this time. Exam Vital Signs Temp Pulse Resp BP Pulse Ox O2 Del Method 97.4 F 74 14 108/54 L 99 Room Air 01/07/25 12:00 01/07/25 12:00 01/07/25 12:00 01/07/25 12:00 01/07/25 12:00 01/07/25 12:00 Narrative Exam General: A/O x3, no acute distress, pale Eyes: PERRL, EOMI. Anicteric, vision grossly intact. Ears: No ear pain, no ear discharge, Hearing grossly intact. Nose: No nasal discharge. Mouth/Throat: Moist mucous membranes, no redness, no lesions. Neck: Neck supple, non-tender, no cervical lymphadenopathy. Lungs: Clear FELICIA to auscultation and percussion, No accessory muscle use. Cardio: Normal S1/S2, regular rhythm, no murmurs, no JVD or carotid bruits. Abdomen: Soft, mildly tender in L side, no palpable masses, peristalsis present, no guarding or rebound. Extremities: Symmetrical, no significant deformities, no peripheral edema , non-tender, peripheral pulses presents. Skin: No rashes, no lesions, warm to touch. Neuro: No focal neurological deficits. motor and sensory intact Psych: Cooperative, appropriate mood and effect. Objective Labs 01/07/25 05:31 01/07/25 05:31 Labs: Laboratory Results - last 24 hr 01/06/25 01/06/25 01/06/25 13:47 15:07 17:14 WBC 6.1 RBC 4.43 Hgb 9.1 L Hct 29.4 L MCV 66 L MCH 20.5 L MCHC 31.0 RDW Std Deviation 42.2 Plt Count 279 Neut % (Auto) 92 H Lymph % (Auto) 7 L [place] % (Auto) 1 Eos % (Auto) 0 Baso % (Auto) 0 Neut # (Auto) 5.6 Lymph # (Auto) 0.4 L [place] # (Auto) 0.1 Eos # (Auto) 0.0 Baso # (Auto) 0.0 Immature Gran # (Auto) 0.04 H Absolute Nucleated RBC 0.00 Immature Gran % 1 H Nucleated RBC % 0 Smear Path Review PT 11.7 INR 1.1 APTT 24.9 Sodium 134 L Potassium 3.1 L Chloride 101 Carbon Dioxide 18.9 L Anion Gap 14 BUN 11 Creatinine 1.1 Estim Creat Clear Calc 73.8 eGFR > 60 BUN/Creatinine Ratio 10 L Glucose [address] Glu mg/dL Hemoglobin A1c Calculated Osmolality 271 L Lactic Acid 3.0 H Calcium 9.1 Corrected Calcium 9.1 Phosphorus 1.3 L Magnesium 1.5 L Total Bilirubin 0.5 AST 30 ALT 22 Alkaline Phosphatase 109 Lactate Dehydrogenase 215 Troponin I < 0.020 B-Natriuretic Peptide 111 H Total Protein 7.3 Albumin 4.4 Globulin 2.9 Albumin/Globulin Ratio 1.5 Lipase 29 Procalcitonin 1.42 H HCG, Qual Negative Ur Collection Type Clean Catch Urine Color Lt-Yellow Urine Clarity Hazy Urine pH 6.0 Ur Specific [place] 1.024 Urine Protein 1+ A Urine Glucose (UA) Negative Urine Ketones Trace Urine Blood 2+ A Urine Nitrite Positive Urine Bilirubin Negative Urine Urobilinogen (Auto) Negative Ur Leukocyte Esterase Positive Urine RBC 23 H Urine WBC 19 H Ur Squamous Epith Cells 1 Urine Bacteria 3+ A Urine HCG, Qual Blood Type O Positive Antibody Screen NEGATIVE Blood Bank Wristband ID Yes 01/06/25 01/07/25 01/07/25 17:22 05:31 09:30 WBC 8.2 RBC 3.53 L Hgb 7.4 L Hct 24.2 L MCV 69 L MCH 21.0 L MCHC 30.6 L RDW Std Deviation 44.2 Plt Count 200 D Neut % (Auto) 68 Lymph % (Auto) 20 [place] % (Auto) 11 Eos % (Auto) 1 Baso % (Auto) 0 Neut # (Auto) 5.6 Lymph # (Auto) 1.7 [place] # (Auto) 0.9 H Eos # (Auto) 0.0 Baso # (Auto) 0.0 Immature Gran # (Auto) 0.04 H Absolute Nucleated RBC 0.00 Immature Gran % 1 H Nucleated RBC % 0 Smear Path Review Sent to Pathologist PT INR APTT Sodium 139 Potassium 3.5 Chloride 107 Carbon Dioxide 22.4 Anion Gap 10 BUN 7 L Creatinine 0.8 Estim Creat Clear Calc 108.8 eGFR > 60 BUN/Creatinine Ratio 9 L Glucose [address] Glu mg/dL 140 H Hemoglobin A1c 6.5 H Calculated Osmolality 276 Lactic Acid 1.3 Calcium 8.2 L Corrected Calcium 8.5 Phosphorus 3.2 Magnesium 2.6 Total Bilirubin 0.4 AST 24 ALT 25 Alkaline Phosphatase 83 D Lactate Dehydrogenase Troponin I B-Natriuretic Peptide Total Protein 5.9 Albumin 3.6 D Globulin 2.3 Albumin/Globulin Ratio 1.6 Lipase Procalcitonin HCG, Qual Ur Collection Type Urine Color Urine Clarity Urine pH Ur Specific [place] Urine Protein Urine Glucose (UA) Urine Ketones Urine Blood Urine Nitrite Urine Bilirubin Urine Urobilinogen (Auto) Ur Leukocyte Esterase Urine RBC Urine WBC Ur Squamous Epith Cells Urine Bacteria Urine HCG, Qual Negative Blood Type Antibody Screen Blood Bank Wristband ID Quality Measures Quality Measures none Assessment & Plan Assessment Current Active Medications: Generic Name Dose Route Start Last Admin Trade Name Freq PRN Reason Stop Dose Admin Acetaminophen 650 mg 01/06/25 17:11 01/07/25 09:00 Acetaminophen 325 Mg Tablet PO 02/05/25 17:10 650 mg Q6H PRN Administration pain and Fever >100.4 Hydrocodone Bitart/Acetaminophen 1 tab 01/06/25 17:11 Hydrocodone/Apap 5/325 Tablet PO 01/11/25 17:10 Q4HR PRN PAIN SCALE 4-6 (Moderate Dextrose 25 ml 01/06/25 17:11 Dextrose 50%-Water Inj 50 Ml Syringe IV 02/05/25 17:10 Q15MIN PRN BG 50-70 responsive npo pt Dextrose 50 ml 01/06/25 17:11 Dextrose 50%-Water Inj 50 Ml Syringe IV 02/05/25 17:10 Q15MIN PRN BG <50 OR BG <70 & pt unresponsive Glucagon 1 mg 01/06/25 17:11 Glucagon Inj 1 Mg Vial IM Q15MIN PRN BG <70, and no IV access Pantoprazole Sodium 80 mg in 100 mls @ 10 mls/hr 01/06/25 16:45 01/07/25 12:44 Protonix/Ns 80mg Iv Premix IV 01/09/25 14:44 10 mls/hr Q10H NYDIA Administration Sodium Chloride 1,000 mls @ 125 mls/hr 01/06/25 16:50 01/07/25 08:51 Ns IV 02/05/25 16:49 125 mls/hr .Q8H NYDIA Administration Ceftriaxone Sodium 2 gm/ 50 mls @ 100 mls/hr 01/07/25 09:00 01/07/25 08:51 Sodium Chloride IV 01/14/25 08:59 100 mls/hr QDAY NYDIA Administration Insulin Human Lispro 0 unit 01/07/25 07:30 01/07/25 12:09 Insulin Lispro (Admelog) 1 Unit/0.01 Ml Unit SC 02/06/25 07:29 Not Given AC NYDIA Protocol Morphine Sulfate 1 mg 01/06/25 17:11 Morphine Sulf Inj 10 Mg/Ml Vial IVP 01/11/25 17:10 Q2H PRN PAIN SCALE 7-10 (Severe Ondansetron HCl 4 mg 01/06/25 17:11 Ondansetron Inj 2 Mg/Ml Inj 2 Ml IVP 02/05/25 17:10 Q6H PRN NAUSEA OR VOMITING Protocol Plan 44-year-old female was admitted to the hospital on 01/06/2025 due to possible GI bleed and urolithiasis. #Left urolithiasis #Mild left hydronephrosis #Complicated UTI #GNR bacteremia #Lactic acidosis, resolved #High anion gap metabolic acidosis, resolved Patient came in with left flank pain on abdomen/pelvis CT she did have some mild left hydronephrosis secondary to a 5 mm left distal ureteral stone Patient's UA was positive for bacteria and blood Patient did meets SIRS criteria 3 out of 4 (no WBC elevation) Patient's lactic acid was initially 3 and then down trended to 1.3 Anion gap 14 and bicarb 18.9 likely in the setting of lactic acidosis Aggressive IV hydration with 3 L boluses in the ED GNR 2/2 in blood cultures preliminary Plan: IV Rocephin 2gm daily Blood cultures and urine cultures ordered Pain management with morphine 1 mg every 2 hours for severe pain and [place] 5 for moderate pain Will continue to monitor #Microcytic normochromic anemia #Possible GI bleed Patient came in with hemoglobin 9.1 her baseline is around 12 Patient's FOBT was positive, but patient denies any blood in the stool or black starry stools in the past. Patient does endorse using ibuprofen for the last 3 days, but does not routinely use it. Patient is currently on her menstruation, but she states that she is not have a heavy period No active signs of bleeding Hgb today 7.4 could be due to hemodilution Plan: EGD likely today Protonix GI consulted, appreciate recommendations Will transfuse if hemoglobin less than 7 Will continue to monitor #Electrolyte imbalance #Hypokalemia #Hypomagnesemia #Hypophosphatemia Patient came with the potassium of 3.5, magnesium 2.6, and Phos was 3.2 Plan: Will replete as necessary #Prediabetes Patient states she takes metformin for prediabetes A1C 6.5% 12/2024 Plan: ISS Hypoglycemic protocol Disposition: Pending EGD and culture sensitivity Diet:NPO GI prophylaxis: protonix DVT prophylaxis: SCD Code: full Case disclosed with Attending Dr. Rivera and my senior Dr. Cyrus Fontenot PGY1 Disclaimer: Even though this this note was dictated by speech recognition and even though it was carefully revised there may still be minor errors in medical transcription due to voice recognition software.
--- NOTE | 2025-01-07 18:45 | SUR.PHASEI ---
Arrived to [facility] via [facility]. Report received from Jayla FERNANDEZ. Resting with eyes closed. No s/o distress or discomfort. Respiration even and unlabored.
--- NOTE | 2025-01-07 19:09 | SUR.PHASEI ---
Report given to Zully FERNANDEZ MED/SURG. Resting with eyes closed. Responds to questions and commands appropriately. No c/o pain or discomfort.
--- NOTE | 2025-01-07 19:27 | SUR.PHASEI ---
Transferred to room 381 via [facility]. Ambulated to bed with one person assist, tolerated well. Call light in hand. Zully FERNANDEZ aware that patient is back in her room.
[2025-01-07] MEDS: NA SU/NAHCO3/KC/PEG (Golytely) 4,000 ML BTL 4000 ML PO (20:12)
[2025-01-08] VITALS (24 sets, daily range): BP systolic 116–148; BP diastolic 68–96; PULSE 54–83; RESP 16–98; TEMP 35.6–37.1; O2SAT 95–99; BMI 46.5
[2025-01-08] MEDS: PANTOPRAZOLE/NS 80MG IV PREMIX 80 MG/100 ML BAG 10 MG IV ×3 (01:09→22:49)
[2025-01-08] MEDS: SODIUM CHLORIDE 0.9% 1000 ML 1,000 ML 125 ML IV ×3 (04:33→22:09)
[2025-01-08] MEDS: ACETAMINOPHEN 325 MG TABLET 650 MG PO (04:40)
[2025-01-08 06:02] LABS: Basophils % (Auto) 0 % (0-2.5); Eosinophils # (Auto) 0.1 Thou/mm3 (0.0-0.5); Eosinophils % (Auto) 1 % (0-10); Hematocrit 22.3 % (36.0-46.0); Immature Granulocytes % (Auto) 0 % (0-0); Immature Granulocytes Auto 0.03 Thou/mm3 (0.00-0.00); Lymphocytes # (Auto) 1.3 Thou/mm3 (1.0-4.8); Lymphocytes % (Auto) 19 % (10-50); Mean Corpuscular Hemoglobin 20.6 pg (25.0-35.0); Mean Corpuscular Volume 69 fL (80-100); Monocytes # (Auto) 0.8 Thou/mm3 (0.0-0.8); Monocytes % (Auto) 12 % (0-12); Neutrophils # (Auto) 4.5 Thou/mm3 (1.8-7.7); Neutrophils % (Auto) 67 % (37-80); Nucleated Red Blood Cell % 0 /100 WBC (0); Platelet Count 206 Thou/mm3 (140-440); RDW Standard Deviation 44.9 fL (36.4-46.3); Red Blood Count 3.25 Miln/mm3 (4.00-5.20); White Blood Count 6.7 Thou/mm3 (3.6-11.0)
[2025-01-08 06:18] LABS: Hemoglobin 6.7 g/dL (12.0-16.0)
[2025-01-08 06:33] LABS: Alanine Aminotransferase 25 U/L (10-49); Albumin, Serum 3.5 gm/dL (3.5-5.0); Albumin/Globulin Ratio 1.5 (1.2-2.2); Alkaline Phosphatase 111 U/L (46-116); Anion Gap 11 (7-16); Aspartate Amino Transferase 23 U/L (0-34); BUN/Creatinine Ratio 9 Ratio (12-20); Bilirubin,Total 0.2 mg/dL (0.3-1.2); Blood Urea Nitrogen 6 mg/dL (9-23); Calcium 8.4 mg/dL (8.3-10.6); Calcium (Corrected) 8.8 mg/dL (8.5-10.1); Carbon Dioxide 22.7 mMol/L (20.0-31.0); Chloride 105 mMol/L (98-107); Creatinine (Component) 0.7 mg/dL (0.6-1.3); Estimated Creatinine Clearance 124.3 mL/min (>60); Globulin 2.4 gm/dL (2.3-3.5); Glucose 116 mg/dL (74-106); Osmolality,Calculated 276 (275-295); Phosphorous 2.8 mg/dL (2.4-5.1); Sodium 139 mMol/L (136-145); Total Protein 5.9 gm/dL (5.7-8.2); eGFR > 60 See Note
[2025-01-08 06:49] LABS: Magnesium 2.1 mg/dL (1.6-2.6)
[2025-01-08] MEDS: HYDROcodone/APAP 5/325 TABLET 1 TAB PO ×2 (08:54→20:32)
[2025-01-08] MEDS: cefTRIAXone 2 GM in SODIUM CHLORIDE 0.9% (Popper) 50 ML IV (08:54)
[2025-01-08 11:40] LABS: Hemoglobin 6.8 g/dL (12.0-16.0)
--- NOTE | 2025-01-08 11:54 | ESPR_ITS ---
<Statement entered by Bijal Rivera MD - 01/13/25 14:40> I reviewed above note and agree with findings and plans. I have also personally examined the patient with medicine team and went over assessment and plan with medical team including manager of internal and resident physician. Documentation for date of: 01/08/25 Subjective Subjective Interval history: Overnight, no acute events reported. Patient got her EGD done which showed mild inflammation in the gastric antrum, 2 biopsies were taken, and 2 nonbleeding superficial gastric ulcers were also found. Patient's blood culture and urine culture both grew E. coli. Patient will continue to be on IV Rocephin 2 g. Patient is all started on GoLytely for colonoscopy later today. Patient's hemoglobin from this morning is 6.7 and repeat is 6.8. Will order 1 unit packed RBC. Patient also has been getting IV maintenance fluids and is currently on her menstrual period which could also affect her current hemoglobin level. All questions asked and answered. Patient also advised to follow-up with urology outpatient for her left ureteral calculus. Exam Vital Signs Temp Pulse Resp BP Pulse Ox O2 Del Method O2 Flow Rate 96.0 F L 72 16 137/73 H 97 Room Air 3 01/08/25 08:00 01/08/25 08:00 01/08/25 08:00 01/08/25 08:00 01/08/25 08:00 01/08/25 08:00 01/07/25 18:39 Narrative Exam General Appearance: Pt in NAD laying comfortably in bed. HEENT: NC/AT, no scleral icterus, no conjunctival pallor, MMM Lungs: CTAB, no wheezes or crackles appreciated CVS: RRR, S1/S2 heard, no murmurs or rubs appreciated ABD: Soft, mildly tender in left flank area, no palpable masses, bowel sounds heard EXT: no deformity/edema/lesions/cyanosis/clubbing, radial pulses 2+ BL, DP pulses 2 + BL SKIN: Skin exam normal without any rashes. Neuro: A&O x 3. No gross neurological deficits. Motor and sensory grossly intact in B/L UL and LL. Psych: Appropriate mood and affect Objective Labs 01/08/25 11:08 01/08/25 04:21 Labs: Laboratory Results - last 24 hr 01/08/25 01/08/25 04:21 11:08 WBC 6.7 RBC 3.25 L Hgb 6.7 L* 6.8 L* Hct 22.3 L 22.0 L MCV 69 L MCH 20.6 L MCHC 30.0 L RDW Std Deviation 44.9 Plt Count 206 Neut % (Auto) 67 Lymph % (Auto) 19 [place] % (Auto) 12 Eos % (Auto) 1 Baso % (Auto) 0 Neut # (Auto) 4.5 Lymph # (Auto) 1.3 [place] # (Auto) 0.8 Eos # (Auto) 0.1 Baso # (Auto) 0.0 Immature Gran # (Auto) 0.03 H Absolute Nucleated RBC 0.00 Immature Gran % 0 Nucleated RBC % 0 Sodium 139 Potassium 3.0 L D Chloride 105 Carbon Dioxide 22.7 Anion Gap 11 BUN 6 L Creatinine 0.7 Estim Creat Clear Calc 124.3 eGFR > 60 BUN/Creatinine Ratio 9 L Glucose 116 H Calculated Osmolality 276 Calcium 8.4 Corrected Calcium 8.8 Phosphorus 2.8 Magnesium 2.1 Total Bilirubin 0.2 L AST 23 ALT 25 Alkaline Phosphatase 111 D Total Protein 5.9 Albumin 3.5 Globulin 2.4 Albumin/Globulin Ratio 1.5 Quality Measures Quality Measures none Assessment & Plan Assessment Current Active Medications: Generic Name Dose Route Start Last Admin Trade Name Freq PRN Reason Stop Dose Admin Acetaminophen 650 mg 01/06/25 17:11 01/08/25 04:40 Acetaminophen 325 Mg Tablet PO 02/05/25 17:10 650 mg Q6H PRN Administration pain and Fever >100.4 Hydrocodone Bitart/Acetaminophen 1 tab 01/06/25 17:11 01/08/25 08:54 Hydrocodone/Apap 5/325 Tablet PO 01/11/25 17:10 1 tab Q4HR PRN Administration PAIN SCALE 4-6 (Moderate Dextrose 25 ml 01/06/25 17:11 Dextrose 50%-Water Inj 50 Ml Syringe IV 02/05/25 17:10 Q15MIN PRN BG 50-70 responsive npo pt Dextrose 50 ml 01/06/25 17:11 Dextrose 50%-Water Inj 50 Ml Syringe IV 02/05/25 17:10 Q15MIN PRN BG <50 OR BG <70 & pt unresponsive Glucagon 1 mg 01/06/25 17:11 Glucagon Inj 1 Mg Vial IM Q15MIN PRN BG <70, and no IV access Pantoprazole Sodium 80 mg in 100 mls @ 10 mls/hr 01/06/25 16:45 01/08/25 01:09 Protonix/Ns 80mg Iv Premix IV 01/09/25 14:44 10 mls/hr Q10H NYDIA Administration Sodium Chloride 1,000 mls @ 125 mls/hr 01/06/25 16:50 01/08/25 04:33 Ns IV 02/05/25 16:49 125 mls/hr .Q8H NYDIA Administration Ceftriaxone Sodium 2 gm/ 50 mls @ 100 mls/hr 01/07/25 09:00 01/08/25 08:54 Sodium Chloride IV 01/14/25 08:59 100 mls/hr QDAY NYDIA Administration Insulin Human Lispro 0 unit 01/07/25 07:30 01/08/25 07:41 Insulin Lispro (Admelog) 1 Unit/0.01 Ml Unit SC 02/06/25 07:29 Not Given AC NYDIA Protocol Morphine Sulfate 1 mg 01/06/25 17:11 Morphine Sulf Inj 10 Mg/Ml Vial IVP 01/11/25 17:10 Q2H PRN PAIN SCALE 7-10 (Severe Ondansetron HCl 4 mg 01/06/25 17:11 Ondansetron Inj 2 Mg/Ml Inj 2 Ml IVP 02/05/25 17:10 Q6H PRN NAUSEA OR VOMITING Protocol Plan 44-year-old female was admitted to the hospital on 01/06/2025 due to possible GI bleed and urolithiasis. #Acute blood loss anemia in the setting of #Upper GI bleed #Gastric ulcer # Microcytic anemia Patient came in with hemoglobin 9.1 her baseline is around 12 Patient's FOBT was positive, but patient denies any blood in the stool or black starry stools in the past. Patient does endorse using ibuprofen for the last 3 days, but does not routinely use it. Patient is currently on her menstruation, but she states that she is not have a heavy period No active signs of bleeding Hgb today 6.7, and repeat 6.8 EGD showed mild inflammation in gastric antrum, 2 biopsies were taken for pathology, and 2 nonbleeding superficial gastric ulcers found Colonoscopy today showed internal hemorrhoids which were banded Plan: Regular diet Protonix GI consulted, recommend capsule endoscopy outpatient Ordered 1 unit packed RBC, currently transfusing Will continue to monitor Will monitor daily CBC, and anticipate discharge in 24 hours Will order iron studies in a.m. #Left urolithiasis #Mild left hydronephrosis #Complicated UTI secondary to E. coli # E. coli bacteremia #Lactic acidosis, resolved #High anion gap metabolic acidosis, resolved Patient came in with left flank pain on abdomen/pelvis CT she did have some mild left hydronephrosis secondary to a 5 mm left distal ureteral stone Patient's UA was positive for bacteria and blood Patient did meets SIRS criteria 3 out of 4 (no WBC elevation) Patient's lactic acid was initially 3 and then down trended to 1.3 Anion gap 14 and bicarb 18.9 likely in the setting of lactic acidosis Aggressive IV hydration with 3 L boluses in the ED GNR 2/2 in blood cultures preliminary Blood cultures and urine cultures show E. coli Plan: IV Rocephin 2gm daily and most likely will transition to levofloxacin 750 mg daily for total of 14 days Pain management with morphine 1 mg every 2 hours for severe pain and [place] 5 for moderate pain Will continue to monitor #Electrolyte imbalance #Hypokalemia #Hypomagnesemia #Hypophosphatemia Patient came with the potassium of 3.5, magnesium 2.6, and Phos was 3.2 Plan: Will replete as necessary #Prediabetes Patient states she takes metformin for prediabetes A1C 6.5% 12/2024 Plan: ISS Hypoglycemic protocol Disposition: Anticipate discharge in 24 hours as patient's hemoglobin is below 7 Diet: Regular diet GI prophylaxis: protonix gtt DVT prophylaxis: SCD Code: full Patient's plan and care discussed with my attending, Dr. Nicole Bridges MD PGY-2
--- NOTE | 2025-01-08 13:01 | SUR.PHASEI ---
1301: Pt. AAOx4, vitals stable, breathing unlabored, no complaint of pain or nausea, no dressing in place, no active bleed noted, report received from Miriam FERNANDEZ.
--- NOTE | 2025-01-08 13:31 | SUR.PHASEI ---
1331: Pt. AAOx4, vitals stable, breathing unlabored, no complaint of pain or nausea, no dressing in place, no active bleed noted, pt. able to pass flatus, report given to Juan FERNANDEZ prior to transfer to room 381.
--- NOTE | 2025-01-08 14:45 | PC.SS ---
Rounding note: patient is pending colonoscopy, anticipate d/c tomorrow back home.
[2025-01-08] MEDS: POTASSIUM CHLORIDE 10% 20 MEQ/15 ML UDC 40 MEQ PO (16:58)
[2025-01-08 21:20] LABS: Hematocrit 23.3 % (36.0-46.0)
[2025-01-08 21:51] LABS: Hemoglobin 7.3 g/dL (12.0-16.0)
[2025-01-09] VITALS: BP 120/76; PULSE 76; RESP 18; TEMP 36.1; O2SAT 97
[2025-01-09 04:00] VITALS: BP 139/90; PULSE 72; RESP 18; TEMP 36.4; O2SAT 96
[2025-01-09] MEDS: SODIUM CHLORIDE 0.9% 1000 ML 1,000 ML 125 ML IV (05:55)
[2025-01-09 06:18] LABS: Basophils % (Auto) 1 % (0-2.5); Eosinophils # (Auto) 0.1 Thou/mm3 (0.0-0.5); Eosinophils % (Auto) 2 % (0-10); Hematocrit 24.2 % (36.0-46.0); Immature Granulocytes % (Auto) 1 % (0-0); Immature Granulocytes Auto 0.05 Thou/mm3 (0.00-0.00); Lymphocytes # (Auto) 1.5 Thou/mm3 (1.0-4.8); Lymphocytes % (Auto) 25 % (10-50); Mean Corpuscular Hemoglobin 21.7 pg (25.0-35.0); Mean Corpuscular Volume 70 fL (80-100); Monocytes # (Auto) 0.5 Thou/mm3 (0.0-0.8); Monocytes % (Auto) 8 % (0-12); Neutrophils # (Auto) 3.8 Thou/mm3 (1.8-7.7); Neutrophils % (Auto) 64 % (37-80); Nucleated Red Blood Cell % 0 /100 WBC (0); Platelet Count 214 Thou/mm3 (140-440); RDW Standard Deviation 48.1 fL (36.4-46.3); Red Blood Count 3.46 Miln/mm3 (4.00-5.20); White Blood Count 5.9 Thou/mm3 (3.6-11.0)
[2025-01-09 06:20] LABS: Alanine Aminotransferase 44 U/L (10-49); Albumin, Serum 3.5 gm/dL (3.5-5.0); Albumin/Globulin Ratio 1.8 (1.2-2.2); Alkaline Phosphatase 157 U/L (46-116); Anion Gap 12 (7-16); Aspartate Amino Transferase 36 U/L (0-34); BUN/Creatinine Ratio 13 Ratio (12-20); Bilirubin,Total 0.2 mg/dL (0.3-1.2); Blood Urea Nitrogen 8 mg/dL (9-23); Calcium 7.4 mg/dL (8.3-10.6); Calcium (Corrected) 7.8 mg/dL (8.5-10.1); Chloride 110 mMol/L (98-107); Creatinine (Component) 0.6 mg/dL (0.6-1.3); Estimated Creatinine Clearance 142.4 mL/min (>60); Glucose 141 mg/dL (74-106); Hemoglobin 7.5 g/dL (12.0-16.0); Osmolality,Calculated 287 (275-295); Phosphorous 2.7 mg/dL (2.4-5.1); Potassium 3.3 mMol/L (3.4-5.1); Sodium 144 mMol/L (136-145); Total Protein 5.5 gm/dL (5.7-8.2); eGFR > 60 See Note
[2025-01-09 06:21] LABS: Ferritin 30 ng/mL (7.3-270.7); Iron 15 mcg/dL (50-170); Percent Iron Saturation 4 % (20-55); Total Iron Binding Capacity 311 mcg/dL (250-425); Unsaturated Iron Binding 296 (225-295)
[2025-01-09 08:00] VITALS: BP 140/81; PULSE 60; RESP 16; TEMP 35.8; O2SAT 95
[2025-01-09] MEDS: cefTRIAXone 2 GM in SODIUM CHLORIDE 0.9% (Popper) 50 ML IV (09:02)
[2025-01-09] MEDS: POTASSIUM CHLORIDE 20 mEq TABCR 40 MEQ PO (09:03)
[2025-01-09] MEDS: INSULIN LISPRO (AdmeLOG) 1 UNIT/0.01 ML UNIT SC ×2 (09:03→12:10)
--- NOTE | 2025-01-09 09:19 | ESPR_ITS ---
Documentation for date of: 01/09/25 Subjective Subjective Interval history: Hemoglobin hematocrit at 7.5 and 24.2 upper endoscopy showed gastritis Colonoscopy showed internal hemorrhoids Outpatient capsule endoscopy Exam Vital Signs Temp Pulse Resp BP Pulse Ox O2 Del Method O2 Flow Rate 96.4 F L 60 16 140/81 H 95 Room Air 3 01/09/25 08:00 01/09/25 08:00 01/09/25 08:00 01/09/25 08:00 01/09/25 08:00 01/09/25 08:00 01/08/25 12:53 Objective Labs 01/09/25 05:26 01/09/25 05:26 Labs: Laboratory Results - last 24 hr 01/06/25 01/08/25 01/08/25 17:14 11:08 20:57 WBC RBC Hgb 6.8 L* 7.3 L Hct 22.0 L 23.3 L MCV MCH MCHC RDW Std Deviation Plt Count Neut % (Auto) Lymph % (Auto) [place] % (Auto) Eos % (Auto) Baso % (Auto) Neut # (Auto) Lymph # (Auto) [place] # (Auto) Eos # (Auto) Baso # (Auto) Immature Gran # (Auto) Absolute Nucleated RBC Immature Gran % Nucleated RBC % Sodium Potassium Chloride Carbon Dioxide Anion Gap BUN Creatinine Estim Creat Clear Calc eGFR BUN/Creatinine Ratio Glucose Calculated Osmolality Calcium Corrected Calcium Phosphorus Magnesium Iron TIBC Iron Saturation Unsat Iron Binding Ferritin Total Bilirubin AST ALT Alkaline Phosphatase Total Protein Albumin Globulin Albumin/Globulin Ratio Blood Type O Positive Antibody Screen NEGATIVE Crossmatch See Detail Blood Bank Wristband ID Yes 01/09/25 05:26 WBC 5.9 RBC 3.46 L Hgb 7.5 L Hct 24.2 L MCV 70 L MCH 21.7 L MCHC 31.0 RDW Std Deviation 48.1 H Plt Count 214 Neut % (Auto) 64 Lymph % (Auto) 25 [place] % (Auto) 8 Eos % (Auto) 2 Baso % (Auto) 1 Neut # (Auto) 3.8 Lymph # (Auto) 1.5 [place] # (Auto) 0.5 Eos # (Auto) 0.1 Baso # (Auto) 0.0 Immature Gran # (Auto) 0.05 H Absolute Nucleated RBC 0.00 Immature Gran % 1 H Nucleated RBC % 0 Sodium 144 Potassium 3.3 L Chloride 110 H Carbon Dioxide 22.0 Anion Gap 12 BUN 8 L Creatinine 0.6 Estim Creat Clear Calc 142.4 eGFR > 60 BUN/Creatinine Ratio 13 Glucose 141 H Calculated Osmolality 287 Calcium 7.4 L Corrected Calcium 7.8 L Phosphorus 2.7 Magnesium 2.0 Iron 15 L TIBC 311 Iron Saturation 4 L Unsat Iron Binding 296 H Ferritin 30 Total Bilirubin 0.2 L AST 36 H ALT 44 Alkaline Phosphatase 157 H D Total Protein 5.5 L Albumin 3.5 Globulin 2.0 L Albumin/Globulin Ratio 1.8 Blood Type Antibody Screen Crossmatch Blood Bank Wristband ID Impressions Impression: Internal hemorrhoids Gastritis PCP to arrange outpatient capsule endoscopy at a tertiary center Assessment & Plan Time Spent With Patient Time: Total time spent is greater than 50% in coordination of care (as documented) at patient's floor/unit and/or counseling patient:
[2025-01-09] MEDS: CALCIUM GLUC/NS 1000MG IVPB 1,000 MG/50 ML BAG 50 MG IV (10:33)
[2025-01-09] MEDS: PANTOPRAZOLE/NS 80MG IV PREMIX 80 MG/100 ML BAG 10 MG IV (10:36)
[2025-01-09 12:00] VITALS: BP 130/77; PULSE 50; RESP 18; TEMP 35.6; O2SAT 98
--- NOTE | 2025-01-09 15:14 | ESDS_ITS ---
<Statement entered by Bijal Rivera MD - 01/15/25 15:43> I reviewed above note and agree with findings and plans. I have also personally examined the patient with medicine team and went over assessment and plan with medical team including biomedical engineering internship and resident physician. Planned Discharge Date 01/09/25 DS: Providers Provider Date of admission: 01/06/25 17:12 Primary care physician: Remy Linares MD Admitting Provider: Canelo Blackman MD Attending Provider on Admission: Bijal Rivera MD Consults: 01/06/25 17:20 Consult to Gastroenterology Routine Comment: Consulting Provider: Angelo Hawkins Attending Provider on DC: Dori Bridges MD Discharging Provider: Dori Bridges MD DS: Diagnosis Problem List Completed Was Problem List Reviewed/Reconciled?: Yes Hospital Course Hospital Course Hospital course: Ms. Ruffin is a 44-year-old female who presented with low hemoglobin levels and admitted for GI bleed workup on 01/06/25. Patient's Hgb was 9.1, and her baseline is around 12, however she also started on her menstrual period that day. Patient's FOBT was positive, but denied any blood in the stool or black starry stools in the past. Patient does have a history of using ibuprofen for pain, but doesn't routinely use it. GI was consulted and performed an EGD which showed mild inflammation in gastric antrum, 2 biopsies were taken for pathology, and 2 nonbleeding superficial gastric ulcers found. Colonoscopy was also performed and showed internal hemorrhoids which were banded. In addition to her GI bleed, patient was found to have complicated UTI secondary to E.coli and E.coli bacteremia, and transitioned from IV Rocephin to Augmentin for 7 more days. Patient also came with left flank pain initially, and Abdomen/Pelvis CT showed mild left hydronephrosis secondary to a 5 mm left distal ureteral stone. Iron studies show a possible AARON, as ferritin was 30, and is recommended to repeat levels in 6-8 weeks if patient continues to endorse weakness. Pt seen and examined at bedside. Pt denies any complaints and Hg has been stable, and above 7. Pt is medically cleared to be discharged today with the following instructions: Start taking these new medications: Pantoprazole 40 mg daily, Sucralfate 1g twice daily and Augmentin twice daily for seven more days Continue other home medications as prescribed. Follow up with PCP within 1-2 weeks. Follow up with Dr. Hawkins, GI in 1-2 weeks, as he will need to schedule a capsule endoscopy outpatient to rule out any further bleeding Follow-up with Dr. Gomez, urology in 1 to 2 weeks Please avoid any spicy foods, caffeine, and NSAIDs due to your history of GI ulcers Return to the ED if you develop new or worsening symptoms. Discharge diagnoses treated during hosptial stay: #Acute blood loss anemia in the setting of #Upper GI bleed #Gastric ulcer # Microcytic anemia #Left urolithiasis #Mild left hydronephrosis #Complicated UTI secondary to E. coli # E. coli bacteremia #Lactic acidosis, resolved #High anion gap metabolic acidosis, resolved #Electrolyte imbalance #Hypokalemia #Hypomagnesemia #Hypophosphatemia #Prediabetes Patient's plan and care discussed with my attending, Dr. Nicole Bridges MD PGY-2 Status at Discharge Cognitive/behavioral status at discharge: stable Time Spent with Patient Time attestation: Total time spent providing and/or coordinating discharge services: 35 Time spent: Greater than 30 minutes Quality: Stroke Pt Provided Written Stroke Discharge Instructions: No (na) Exam Vital Signs Temp Pulse Resp BP Pulse Ox O2 Del Method O2 Flow Rate 96.0 F L 50 L 18 130/77 98 Room Air 3 01/09/25 12:01/09/25 12:01/09/25 12:01/09/25 12:01/09/25 12:01/09/25 12:01/08/25 12:53 Narrative Exam General Appearance: Pt in NAD laying comfortably in bed. HEENT: NC/AT, no scleral icterus, no conjunctival pallor, MMM Lungs: CTAB, no wheezes or crackles appreciated CVS: RRR, S1/S2 heard, no murmurs or rubs appreciated ABD: Soft, mildly tender in left flank area, no palpable masses, bowel sounds heard EXT: no deformity/edema/lesions/cyanosis/clubbing, radial pulses 2+ BL, DP pulses 2 + BL SKIN: Skin exam normal without any rashes. Neuro: A&O x 3. No gross neurological deficits. Motor and sensory grossly intact in B/L UL and LL. Psych: Appropriate mood and affect Discharge Plan Plan Patient Disposition: HOME (Self Care) Patient condition on transfer: Stable Care Plan Goals: Start taking these new medications: Pantoprazole 40 mg daily, Sucralfate 1g twice daily and Augmentin twice daily for seven more days Continue other home medications as prescribed. Follow up with PCP within 1-2 weeks. Follow up with Dr. Hawkins, GI in 1-2 weeks, as he will need to schedule a capsule endoscopy outpatient to rule out any further bleeding Follow-up with Dr. Gomez, urology in 1 to 2 weeks Please avoid any spicy foods, caffeine, and NSAIDs due to your history of GI ulcers Return to the ED if you develop new or worsening symptoms. Prescriptions/Referrals Prescriptions/Med Rec: New pantoprazole 40 mg tablet,delayed release (DR/EC) 40 mg PO QDAY Qty: 30 0RF sucralfate 1 gram tablet 1 g PO BID Qty: 30 0RF amoxicillin-pot clavulanate 875-125 mg tablet 1 tab PO BID Qty: 14 0RF Continued metformin 750 mg tablet extended release 24 hr 750 mg PO HS Discontinued Vitamin 27 mg iron- 0.8 mg Tablet 1 tab PO QDAY metformin 500 mg Tablet 500 mg PO BID Referrals: Remy Linares MD [Primary Care Provider] - Patient/Caregiver Discharge Instructions Print Language: Japanese Stand Alone Forms: Franci Award Info., Patient Portal Info Letter Discharge Order Discharge Orders: Discharge (Routine); Ordered 01/09/25 Ordered By: Dori Bridges Quality Discharge Quality Measures VTE prophylaxis
== END 2025-01-09 12:45 | disposition home or self-care (01) | DRG 952 ==
LOC: SERX 17:32 → SERHOLD 17:34 → S3SX 18:57
PROVIDERS: Nurse Practitioner Primary Care; Registered Nurse General Practice; Specialist; Student in an Organized Health Care Education/Training Program; Admitting Provider Student in an Organized Health Care Education/Training Program; Emergency Provider Family Medicine; PCP Family Medicine; Visit Provider Internal Medicine
PROC: 06LY8CC Occlusion of Hemorrhoidal Plexus with Extraluminal Device, Via Natural or Artificial Opening Endoscopic (ICD-10-PCS; CPT 43239; principal; 2025-01-07 21:30)
PROC: 0DJD8ZZ Inspection of Lower Intestinal Tract, Via Natural or Artificial Opening Endoscopic (ICD-10-PCS; CPT 45378; principal; 2025-01-08 16:30)
DX: N13.2 Hydronephrosis with renal and ureteral calculous obstruction (principal); E83.39 Other disorders of phosphorus metabolism; E83.42 Hypomagnesemia; E87.6 Hypokalemia; D50.9 Iron deficiency anemia, unspecified; K80.20 Calculus of gallbladder without cholecystitis without obstruction; E87.20 Acidosis, unspecified; R73.03 Prediabetes; D62 Acute posthemorrhagic anemia; K25.4 Chronic or unspecified gastric ulcer with hemorrhage; E66.9 Obesity, unspecified; K29.71 Gastritis, unspecified, with bleeding; Z68.42 Body mass index [BMI] 45.0-49.9, adult; B96.20 Unspecified Escherichia coli [E. coli] as the cause of diseases classified elsewhere; E86.0 Dehydration; K64.2 Third degree hemorrhoids; Z79.899 Other long term (current) drug therapy; Z87.442 Personal history of urinary calculi; Z98.891 History of uterine scar from previous surgery
CPT/HCPCS: 36415; 36430; 74176; 80053; 81001; 81025; 82728; 83036; 83540; 83550; 83605; 83615; 83690; 83735; 83880; 84100; 84145; 84484; 84703; 85014; 85018; 85025; 85610; 85730; 86850; 86900; 86901; 86923; 87040; 87077; 87086; 87186; 87400; 87811; 93005; 96365; 96367; 96375; 99285; A4217; A4649; J0131; J0613; J0696; J1200; J1815; J2250; J2470; J3010; J3475; J3490; J7030; J7050; J7120; P9016; A9270